=== PATIENT | female | born 1970 | race Caucasian/White ===

== ENCOUNTER 2020-03-04 17:02 | Outpatient (CLI) | payer OTHER, SELFPAY ==
[2020-03-05 14:58] LABS: SARS-CoV-2 RNA PCR Negative
== END 2020-03-04 17:03 | disposition home or self-care (01) ==
PROVIDERS: PCP Family Medicine; Visit Provider Family Medicine
DX: Z20.828 Contact with and (suspected) exposure to other viral communicable diseases (principal)
CPT/HCPCS: 87635; C9803; U0003

== ENCOUNTER 2020-11-30 19:05 | Emergency (ER) | payer OTHER, SELFPAY ==
[2020-11-30 19:13] VITALS: BP 147/98; PULSE 122; RESP 18; TEMP 37.7; O2SAT 99
--- NOTE | 2020-11-30 19:15 | ED.SKABFB ---
HPI - Skin/Abscess/Foreign Bdy General Chief complaint: Skin/Abscess/Foreign Body Stated complaint: cellulitis Time Seen by Provider: 11/30/20 19:15 Source: patient and RN notes reviewed History of Present Illness HPI narrative: Patient is a 50-year-old female who presents the urgent care with complaints of possible left breast cellulitis. Patient does have a history of breast cancer and a total mastectomy with bilateral implants. Patient states that she has never had any issues with the implants before however she has noticed some swelling of the left breast as well as a lot of redness and sharp shooting pains. Patient states that the pain started approximately 3 weeks ago and she had followed up with her breast clinic who completed a CT scan which was negative. Patient states that for the last couple days she has been having some body aches and feeling feverish. Patient had a televisit with her breast clinic today and was told to go immediately to have the breast looked at and placed on an antibiotic. Patient states that she did have a fever last night but denies of any fever since then. Patient has been taking ibuprofen which her last dose was at 115 this afternoon. Denies of any nausea or vomiting. No other acute complaints. No acute distress noted. Patient aware of the plan of care. Some parts of this dictation were generated by voice recognition software and may contain typographical and/or grammatical inaccuracies. Related Data Allergies Allergy/AdvReac Type Severity Reaction Status Date / Time No Known Allergies Allergy Unverified 08/14/12 09:02 Review of Systems Review of Systems: Narrative: CONSTITUTIONAL: Denies fever, chills, or sweats. EYES: Denies visual changes, redness, or discharge. ENT: Denies rhinorrhea, congestion, sore throat, or otalgia. CARDIOVASCULAR: Denies chest pain, palpitations, or edema. RESPIRATORY: Denies cough or dyspnea. GASTROINTESTINAL: Denies abdominal pain, nausea, vomiting, or diarrhea. GENITOURINARY: Denies dysuria or hematuria. SKIN: Reports of redness and swelling to the left breast MUSCULOSKELETAL: Denies back pain, joint pain, or myalgia. NEUROLOGIC: Denies headache, numbness, or weakness. All other systems reviewed are negative, except as documented in HPI. [facility] Family History Family History (Updated 02/10/16 @ 23:19 by DOCTOR UNKNOWN) Mother Hypertension Grandparent Malignant neoplasm of prostate Family history of malignant neoplasm of uterus Family history of atrial fibrillation Diabetes mellitus Carcinoma of colon Sibling Family history of malignant neoplasm of breast in first degree relative Other Cerebrovascular accident Family history of allergic disorder Family history of cardiovascular disease Family history of osteoporosis Social History Social History Smoking status: Never smoker Alcohol intake: current Gender identity (if verbalized by the patient): Female Comments At the time of my signature, I reviewed and agree with the nursing past medical, surgical, social, and family history. There is no relevant family history pertinent to the patient complaint. Exam Narrative: Exam Narrative: GENERAL: This is a well-nourished, well-developed patient, in no apparent distress. HEAD: normocephalic, atraumatic. EYES: PERRL. Sclera clear/white. Vision is grossly intact. EARS: External ears normal NOSE: External nose normal with no obvious nasal discharge, nares without redness, no rhinorrhea. THROAT: Mucous membranes moist NECK: Neck supple CARDIOVASCULAR: Regular rate and rhythm without murmurs, gallops, or rubs. RESPIRATORY: Clear to auscultation. Breath sounds equal bilaterally. No wheezes, rales, or rhonchi. SKIN: Mild to moderate edema/erythema surrounding the left breast with notable petechiae on both the medial and lateral aspects of the left breast. Warm to touch. Tender to touch. NEURO: awake, alert, and oriented to person, place and ti
[2020-11-30] MEDS: cefTRIAXone 250 MG VIAL 500 MG IM (19:43)
== END 2020-11-30 20:00 | disposition home or self-care (01) ==
PROVIDERS: Emergency Provider Nurse Practitioner Family
DX: N61.0 Mastitis without abscess (principal); Z85.3 Personal history of malignant neoplasm of breast; E27.0 Other adrenocortical overactivity; Z92.21 Personal history of antineoplastic chemotherapy; Z92.3 Personal history of irradiation; Z90.13 Acquired absence of bilateral breasts and nipples
CPT/HCPCS: 96372; 99213; G0463; J0696

== ENCOUNTER 2021-07-13 10:27 | Emergency (ER) | payer OTHER, SELFPAY ==
[2021-07-13 11:15] VITALS: BP 129/87; PULSE 95; RESP 16; TEMP 36.8; O2SAT 99
--- NOTE | 2021-07-13 12:35 | ED.URI ---
HPI - URI/Sore Throat General Chief Complaint: Medical Clearance Stated Complaint: swollen neck glands Time Seen by Provider: 07/13/21 12:51 Source: patient and RN notes reviewed Mode of arrival: ambulatory Limitations: no limitations History of Present Illness HPI Narrative: 50-year-old female with history of Sjogren's disease presents with concern for lymphadenopathy. She reports history of rheumatoid arthritis which was inflamed after a hike with a heavy backpack on . Reports her lymph nodes became inflamed after that. Reports she has a history of lymph node swelling to the point of causing her trouble breathing. She reports the lymph node that is swollen is in her neck. She denies any current trouble breathing or trouble swallowing. Reports she is unable to be seen by her primary care doctor. She denies fever, chills, sweats. MD elicited complaint: cough and sore throat Related Data Allergies Allergy/AdvReac Type Severity Reaction Status Date / Time No Known Allergies Allergy Unverified 08/14/12 09:02 Review of Systems Review of Systems: CONSTITUTIONAL: Denies malaise, chills, sweats, or fever. EYES: Denies visual changes, redness, or discharge. ENT: Denies rhinorrhea, congestion, sinus pain, otalgia or sore throat. Reports lymphadenopathy CARDIOVASCULAR: Denies chest pain, palpitations, or edema. RESPIRATORY: Denies cough or dyspnea. SKIN: Denies rash or itching. MUSCULOSKELETAL: Denies myalgia. NEUROLOGIC: Denies numbness, weakness, or headache. All systems reviewed & are unremarkable except as noted in HPI and below PMFSH Family History Family History (Updated 02/10/16 @ 23:19 by DOCTOR UNKNOWN) Mother Hypertension Grandparent Malignant neoplasm of prostate Family history of malignant neoplasm of uterus Family history of atrial fibrillation Diabetes mellitus Carcinoma of colon Sibling Family history of malignant neoplasm of breast in first degree relative Other Cerebrovascular accident Family history of allergic disorder Family history of cardiovascular disease Family history of osteoporosis Social History Social History Smoking status: Never smoker Alcohol intake: current Gender identity (if verbalized by the patient): Female Comments At time of signature, agree with nursing past medical, surgical, social and family history. There is no relevant family history pertinent to the presenting complaint Exam Narrative: GENERAL: Well-appearing, well-nourished, and in no acute distress. HEAD: Normocephalic EYES: PERRLA, conjunctivae clear ENT: Nares clear, turbinates edematous and erythematous, clear discharge. Mucous membranes moist. TM pearly nascimento with dull light reflex bilaterally; no tragal tenderness. Oropharynx not erythematous without lesions. Tonsils not enlarged and without exudate, no drooling, no hoarseness, no trismus, uvula midline. NECK: Supple. No lymphadenopathy CHEST: Clear to auscultation, breath sounds equal. No wheezing, rhonchi, rales, or stridor. No respiratory distress, speaks in full sentences. HEART: Regular rate and rhythm. No murmur heard. SKIN: Warm, dry, no rash. NEURO: Alert and oriented x3. PSYCH: Normal mood and affect Course Course Emergency Course: Patient is aware of diagnosis, understands and agrees to treatment plan. Anticipatory guidance given. Patient agrees to follow-up as directed and is aware of reasons to seek care at the emergency department. Portions of this record may have been created with voice recognition software Vital Signs Vital signs: Vital Signs Temperature 98.2 F 07/13/21 11:15 Pulse Rate 95 07/13/21 11:15 Respiratory Rate 16 07/13/21 11:15 Blood Pressure 129/87 07/13/21 11:15 Pulse Oximetry 99 07/13/21 11:15 Temperature 98.2 F 07/13/21 11:15 Pulse Rate 95 07/13/21 11:15 Respiratory Rate 16 07/13/21 11:15 Blood Pressure 129/87 07/13/21 11:15 Pulse Oximetry 99 07/13/21 11:
== END 2021-07-13 13:02 | disposition home or self-care (01) ==
PROVIDERS: Emergency Provider Nurse Practitioner; PCP Family Medicine
DX: R59.1 Generalized enlarged lymph nodes (principal); M35.00 Sjogren syndrome, unspecified
CPT/HCPCS: 99213; G0463

== ENCOUNTER 2021-11-03 12:04 | Emergency (ER) | payer OTHER, SELFPAY ==
--- NOTE | ~2021-11-03 | XR_ITS ---
EXAMINATION: XR chest 2V DATE: 11/03/2021 12:57 INDICATION: Chest tightness and dizziness. Abnormal EKG. TECHNIQUE: PA and lateral views of the chest were obtained. COMPARISON: Chest radiograph dated 06/27/2017 FINDINGS: The lungs remain clear with no focal airspace opacities, pulmonary edema, pleural effusion or pneumot horax. The cardiomediastinal silhouette is normal. Removal of the prior bilateral breast implants. Mi ld thoracic spondylosis. IMPRESSION: 1. No acute cardiopulmonary disease. Reviewed, dictated and finalized at location A.
--- NOTE | ~2021-11-03 | CT_ITS ---
EXAMINATION: CTA chest PE protocol DATE: 11/03/2021 14:40 INDICATION: Shortness of breath, chest tightness, history of breast cancer TECHNIQUE: Computed tomography angiography (CTA) of the chest was performed with 100 mL Omnipaque-350 intravenous contrast timed to evaluate the pulmonary arteries. Coronal maximum intensity projection 3D-reconstructions were created by the technologist. The dose-length product (DLP) was 178.35 mGy-cm. Automated exposure control and iterative reconstruction technique were employed. COMPARISON: None. FINDINGS: The pulmonary arteries are well-opacified. No pulmonary embolism is identified. There is a 3 mm nodule in the left lower lobe. There is a 2 mm nodule in the right upper lobe. There is mild dep endent atelectasis. No focal airspace opacities are identified. There is no pleural effusion or pneum othorax. There are changes of bilateral mastectomy. No pathologically enlarged thoracic lymph nodes a re identified. The heart size is normal. There is moderate thoracic spondylosis. IMPRESSION: 1. No pulmonary embolism or acute cardiopulmonary abnormality. 2. Small pulmonary nodules, probably old granulomatous disease. Reviewed, dictated and finalized at location F.
[2021-11-03 12:28] VITALS: BP 147/95; PULSE 93; RESP 16; TEMP 36.6; O2SAT 98
--- NOTE | 2021-11-03 12:28 | ECG_ITS ---
Measurements Intervals [place] Rate: 88 P: 47 ID: [id number] QRS: 3 QRSD: 86 T: -3 QT: 346 QTc: 420 Interpretive Statements SINUS RHYTHM POSSIBLE RIGHT VENTRICULAR CONDUCTION DELAY [RSR (QR) IN V1/V2] NO PREVIOUS ECG AVAILABLE FOR COMPARISON Electronically Signed On 11-03-2021 15:27:45 CDT by Erwin Dye M.D.
--- NOTE | 2021-11-03 12:28 | ED.CHESTPAIN ---
HPI - Chest Pain General Chief Complaint: Chest Pain <GRACIELA Oden Last Filed: 11/03/21 20:03> Stated Complaint: chest pain <GRACIELA Oden Last Filed: 11/03/21 20:03> Time Seen by Provider: 11/03/21 12:23 <GRACIELA Oden Last Filed: 11/03/21 20:03> Source: patient <GRACIELA Oden Last Filed: 11/03/21 20:03> Mode of arrival: ambulatory <GRACIELA Oden Last Filed: 11/03/21 20:03> Limitations: no limitations <GRACIELA Oden Last Filed: 11/03/21 20:03> History of Present Illness HPI narrative: Patient is a 51 y/o F who presents to the ED with c/o palpitations. Patient reports she had an episode of pounding heart palpitations on Saturday night, that lasted from 8:30 PM to 1 AM. She has had intermittent palpitations in the past before but they have never lasted this long. She described it as though her heart was pounding. She denied have any chest pain at that time, but did notice having increased shortness of breath and slight dizziness with exertion, for instance walking up her stairs or walking out to her garage. She had intermittent palpitations and shortness of breath with exertion over the next few days. She discussed this with someone in her support group [employer] [facility] [employer] [facility] cancer carnation today who referred her to the ED. Patient was recommended to go to [facility] but states she felt fine and decided to come home. She then talked to her about her symptoms and he recommended she come here. Patient has a history of breast cancer in 2013 with and subsequently underwent bilateral mastectomy and chemotherapy and radiation. She does see a cloth dyeing range tender oncologist due to her radiation exposure, but has never had any previous cardiac events. She also reported having a pain in her L upper back over the last week, which is worse with exertion. Denies any abdominal pain, nausea, vomiting, urinary symptoms, fever, chills, sweats, BLE pain or edema, Hx of DVT/PE. <GRACIELA Oden Last Filed: 11/03/21 20:03> Related Data Allergies/Adverse Reactions: Allergies Allergy/AdvReac Type Severity Reaction Status Date / Time No Known Allergies Allergy Verified 11/03/21 12:31 <Lauren Rodriguez PA-C - Last Filed: 11/03/21 20:03> Review of Systems Review of Systems: CONSTITUTIONAL: Denies fever, chills. CARDIOVASCULAR: Reports palpitations. Denies chest pain or edema. RESPIRATORY: Reports JAFFE. Denies cough. GASTROINTESTINAL: Denies abdominal pain, nausea, vomiting, or diarrhea. GENITOURINARY: Denies dysuria, hematuria. MUSCULOSKELETAL: Reports L upper back pain. Denies joint pain, BLE edema, or myalgia. NEUROLOGIC: Reports dizziness. Denies headache, numbness, or weakness. <Lauren Rodriguez PA-C - Last Filed: 11/03/21 20:03> All systems reviewed & are unremarkable except as noted in HPI and below <Lauren Rodriguez PA-C - Last Filed: 11/03/21 20:03> [facility] Past Medical History Medical History: Medical History (Updated 11/04/21 @ 00:00 by Thad Aleman) History of breast cancer <Lauren Rodriguez PA-C - Last Filed: 11/03/21 20:03> Surgical History Surgical History: Surgical History (Updated 11/03/21 @ 14:18 by Lauren Rodriguez PA-C) Hx of breast implants, bilateral S/P mastectomy, bilateral <Lauren Rodriguez PA-C - Last Filed: 11/03/21 20:03> Family History Family History: Family History (System 08/31/21 @ 15:39 by Kelsey Perez) Mother Hypertension Grandparent Malignant neoplasm of prostate Family history of malignant neoplasm of uterus Family history of atrial fibrillation Diabetes mellitus Carcinoma of colon Sibling Family history of malignant neoplasm of breast in first degree relative Other Cerebrovascular accident Family history of allergic disorder Family history of cardiovascular disease Family history of osteoporosis <Lauren Rodriguez PA-C - Last Filed: 11/03/21 20:03> Social History Soci
[2021-11-03] MEDS: ASPIRIN 81 MG CHEWABLE TABLET 324 MG PO (12:32)
[2021-11-03 12:33] VITALS: PULSE 92
[2021-11-03 12:54] LABS: Alanine Aminotransferase 29 U/L (4-35); Albumin Level 4.5 g/dL (3.5-5.1); Alkaline Phosphatase 66 U/L (38-126); Anion Gap 8 mmol/L (8-16); Aspartate Amino Transferase 35 U/L (14-36); Bilirubin,Total 0.4 mg/dL (0.2-1.3); Blood Urea Nitrogen 15 mg/dL (7-17); Carbon Dioxide 23 mmol/L (22-30); Chloride 107 mmol/L (98-107); Estimated Glomerular Filt Rate > 60; Glucose 91 mg/dL (65-110); Lipase 105 U/L (23-300); Potassium 4.3 mmol/L (3.4-5.0); Sodium 138 mmol/L (137-145)
[2021-11-03 12:55] LABS: INR 0.9; Prothrombin Time 11.9 Seconds (11.1-14.7)
[2021-11-03 12:56] LABS: Partial Thromboplastin Time 27.8 SECONDS (22.3-36.8)
[2021-11-03 13:00] LABS: Basophils Percent Auto 0.3 % (0.2-1.2); Eosinophils Absolute Auto 0.1 K/mm3 (0-0.3); Eosinophils Percent Auto 1.6 % (0-4.4); Hematocrit 42.9 % (37.0-47.0); Hemoglobin 14.2 g/dL (12.0-15.0); Immature Granulocyte Absolute 0.02 K/mm3 (0.00-0.031); Immature Granulocyte Percent A 0.3 % (0-0.5); Lymphocytes Absolute Auto 1.63 K/mm3 (0.9-3.2); Lymphocytes Percent Auto 28.1 % (18.3-44.2); Mean Corpuscular HGB Conc 33.1 g/dl (32-36); Mean Corpuscular Hemoglobin 28.7 pg (26-34); Mean Corpuscular Volume 86.7 fl (80-100); Mean Platelet Volume 9.4 fl (7.4-10.4); Monocytes Absolute Auto 0.5 K/mm3 (0.1-0.6); Monocytes Percent Auto 9.1 % (2.6-8.5); Neutrophils Absolute Auto 3.5 K/mm3 (1.3-6.7); Neutrophils Percent Auto 60.6 % (45.5-73.1); Platelet Count Result 254 k/mm3 (150-375); Red Blood Count 4.95 M/mm3 (4.2-5.4); Red Cell Distribution Width 12.5 % (11.5-14.5); White Blood Count 5.8 K/mm3 (4.5-10.0)
[2021-11-03 13:04] LABS: Troponin I < 0.012 ng/mL (0.000-0.034)
[2021-11-03 14:13] LABS: D Dimer 0.58 ug/mL (<0.48)
[2021-11-03 15:05] VITALS: BP 118/85; PULSE 88; RESP 12; O2SAT 100
[2021-11-03 16:17] LABS: Troponin I < 0.012 ng/mL (0.000-0.034)
[2021-11-03 16:42] VITALS: BP 131/99; PULSE 88; RESP 16; O2SAT 100
== END 2021-11-03 16:44 | disposition home or self-care (01) ==
PROVIDERS: Physician Assistant; Emergency Provider Emergency Medicine; PCP Family Medicine
DX: R00.2 Palpitations (principal); Z85.3 Personal history of malignant neoplasm of breast; Z90.13 Acquired absence of bilateral breasts and nipples; Z92.3 Personal history of irradiation; Z92.21 Personal history of antineoplastic chemotherapy; R94.31 Abnormal electrocardiogram [ECG] [EKG]
CPT/HCPCS: 36415; 71046; 71275; 80053; 83690; 84484; 85025; 85380; 85610; 85730; 93005; 99284; A9270; Q9967

== ENCOUNTER 2021-11-15 01:47 | Day surgery (SDC) | payer OTHER, SELFPAY ==
[2021-10-31 12:41] VITALS: BMI 22.1
--- NOTE | 2021-11-14 13:23 | P.PNAN_ITS ---
Anes - Initial Pre Proc Eval Procedure: Operation Date: 11/15/21 07:30 Proposed Procedures p Screening Colonoscopy - Yusef Chang MD Date/Time: 11/14/21 13:23 Surgeon: Yusef Chang MD Pre Op Diagnosis: neoplasm screening Patient Data Age: 51 Gender: F Height: 1.65 m Weight: 60.5 kg Allergies Allergy/AdvReac Type Severity Reaction Status Date / Time No Known Allergies Allergy Verified 11/15/21 06:27 Home Medications Medication Instructions Recorded Confirmed Type doxycycline monohydrate 100 mg PO BID 7 Days #14 tablet 07/13/21 11/15/21 Rx methylprednisolone [Medrol (Froy)] See Rx Instructions .ROUTE 07/13/21 11/15/21 Rx .COMPLEX #21 each Patient hx anesthesia problems: none Family hx anesthesia problems: none Results Review: All pre-operative results and documents have been reviewed as part of the pre-operative evaluation. [facility] Past Medical History Medical History (Updated 11/14/21 @ 13:23 by Oziel Yo DO) History of breast cancer Rheumatoid arthritis Surgical History Surgical History (Updated 11/03/21 @ 14:18 by Lauren Rodriguez PA-C) Hx of breast implants, bilateral S/P mastectomy, bilateral Family History Family History (System 08/31/21 @ 15:39 by Kelsey Perez) Mother Hypertension Grandparent Malignant neoplasm of prostate Family history of malignant neoplasm of uterus Family history of atrial fibrillation Diabetes mellitus Carcinoma of colon Sibling Family history of malignant neoplasm of breast in first degree relative Other Cerebrovascular accident Family history of allergic disorder Family history of cardiovascular disease Family history of osteoporosis Social History Social History Smoking status: Never smoker Alcohol intake: current Drinks per week: 4 Alcohol use details: 4 glasses of wine per week Substance use: never Substance use type: does not use Living arrangements: with family Gender identity (if verbalized by the patient): Female Spiritual care concerns: No Anes - Eval Final PreProcedure Day of Procedure 11/14/21 13:23 Patient weight: normal Heart: regular rate and rhythm Lungs: clear to auscultation and normal air movement Airway: Mallampati scale class II Neurological: alert and oriented Last oral intake: >/= 8 hours ASA classification: II Emergent: no Anesthetic plan: proceed Anesthesia type and monitoring: general GIVS and standard monitoring Results Review: All pre-operative results and documents have been reviewed as part of the pre-operative evaluation. Informed Consent: The patient's anesthetic plan and its attendant risks and benefits were discussed with the patient/family/POA. Questions were solicited and answers provided to the satisfaction of the patient/family/POA.
[2021-11-15 06:28] VITALS: BP 112/80; PULSE 109; RESP 16; TEMP 36.7; O2SAT 99
[2021-11-15] MEDS: LACTATED RINGERS 1,000 ML 150 ML IV CONT (06:41)
--- NOTE | 2021-11-15 07:27 | PM.HPGS ---
History of Present Illness History of Present Illness Consent: Risks, benefits, and alternatives have been discussed and questions answered. Patient agrees to proceed with procedure. Chief complaint: neoplasm screening Narrative: Mila Ma is a 51 year old female here for first screening colonoscopy Review of Systems Constitutional: Constitutional: Denies headache(s) and Denies weakness Eyes: Eyes: Denies blurry vision ENT: Reports Normal hearing present, Denies headache(s) and Denies neck pain Cardiovascular: Cardiovascular: Denies chest pain and Denies dyspnea Respiratory: Respiratory: Denies dyspnea Gastrointestinal: Gastrointestinal: Reports no additional gastrointestinal complaints Genitourinary: Genitourinary: Denies dysuria Musculoskeletal: Musculoskeletal: Denies neck pain Integumentary/Breasts: Skin/Breast: Denies dry skin Neurologic: Reports Normal hearing present, Denies headache(s) and Denies weakness Psychiatric: Psychiatric: Denies anxiety Endocrine: Endocrine: Denies change in body appearance Hematologic/Lymphatic: Hematologic/Lymphatic: Denies easy bleeding Allergic/Immunologic: Allergic/Immunologic: Denies urticaria PMFSH Past Medical History Medical History (Updated 11/15/21 @ 07:27 by Yusef Chang MD) Colon cancer screening History of breast cancer Rheumatoid arthritis Surgical History Surgical History (Updated 11/03/21 @ 14:18 by Lauren Rodriguez PA-C) Hx of breast implants, bilateral S/P mastectomy, bilateral Family History Family History (System 08/31/21 @ 15:39 by Kelsey Perez) Mother Hypertension Grandparent Malignant neoplasm of prostate Family history of malignant neoplasm of uterus Family history of atrial fibrillation Diabetes mellitus Carcinoma of colon Sibling Family history of malignant neoplasm of breast in first degree relative Other Cerebrovascular accident Family history of allergic disorder Family history of cardiovascular disease Family history of osteoporosis Social History Social History Smoking status: Never smoker Alcohol intake: current Drinks per week: 4 Alcohol use details: 4 glasses of wine per week Substance use: never Substance use type: does not use Living arrangements: with family Gender identity (if verbalized by the patient): Female Spiritual care concerns: No Meds Home Medications and Allergies Home Medications Medication Instructions Recorded Confirmed Type doxycycline monohydrate 100 mg PO BID 7 Days #14 tablet 07/13/21 11/15/21 Rx methylprednisolone [Medrol (Froy)] See Rx Instructions .ROUTE 07/13/21 11/15/21 Rx .COMPLEX #21 each Allergies Allergy/AdvReac Type Severity Reaction Status Date / Time No Known Allergies Allergy Verified 11/15/21 06:27 Vital Signs Vital Signs - 24 hr 11/15/21 06:28 Temperature 98.1 F Pulse Rate 109 H Respiratory Rate 16 Blood Pressure 112/80 Pulse Oximetry 99 Exam Const: General: comfortable and no acute distress HENMT: General nose exam: Normal nares present Eyes: General: appearance normal, both eyes and all related structures Neck: Neck: no JVD Resp: Auscultation: clear to auscultation bilaterally Cardio: Rate: regular rate Rhythm: regular rhythm GI: Inspection: non-distended GI Palp: Yes Soft to palpation Skin: General skin exam: normal color Neuro: General: gait normal Speech: normal speech Extrem: General: normal to inspection Psych: Mental Status: mental status grossly normal Assessment and Plan Assessment and plan (1) Colon cancer screening: Code(s): Z12.11 - Encounter for screening for malignant neoplasm of colon Status: Acute Assessment and Plan: colonoscopy
[2021-11-15 07:45] VITALS: BP 83/44; PULSE 87; RESP 24; O2SAT 99
[2021-11-15 07:55] VITALS: BP 103/73; PULSE 95; RESP 22; O2SAT 100
[2021-11-15 08:05] VITALS: BP 103/71; PULSE 91; RESP 21; O2SAT 100
== END 2021-11-15 08:12 | disposition home or self-care (01) ==
PROVIDERS: PCP Family Medicine; Visit Provider Internal Medicine Gastroenterology
PROC: 0DJD8ZZ Inspection of Lower Intestinal Tract, Via Natural or Artificial Opening Endoscopic (ICD-10-PCS; CPT 45378; principal; 2021-11-15 07:30)
DX: Z12.11 Encounter for screening for malignant neoplasm of colon (principal); K64.8 Other hemorrhoids; M06.9 Rheumatoid arthritis, unspecified; Z85.3 Personal history of malignant neoplasm of breast; Z80.0 Family history of malignant neoplasm of digestive organs
CPT/HCPCS: 45378; J2704; J7120

== ENCOUNTER 2022-07-30 08:00 | Outpatient (CLI) | payer OTHER, SELFPAY ==
[2022-07-30 08:13] LABS: Basophils Absolute Auto 0.02 K/mm3 (0.00-0.10); Basophils Percent Auto 0.4 % (0.0-1.0); Eosinophils Absolute Auto 0.18 K/mm3 (0.02-0.50); Eosinophils Percent Auto 3.9 % (1.0-6.0); Hematocrit 37.3 % (35.0-49.0); Immature Granulocyte Absolute 0.04 K/mm3 (0.00-0.00); Immature Granulocyte Percent A 0.9 % (0.0-0.0); Lymphocytes Absolute Auto 1.86 K/mm3 (1.10-4.50); Lymphocytes Percent Auto 40.3 % (18.0-42.0); Mean Corpuscular HGB Conc 32.2 g/dL (32.0-36.0); Mean Corpuscular Hemoglobin 28.6 pg (27.0-31.0); Mean Platelet Volume 8.8 fl (9.2-11.8); Monocytes Absolute Auto 0.59 K/mm3 (0.10-0.90); Monocytes Percent Auto 12.8 % (2.0-11.0); Neutrophils Absolute Auto 1.9 K/mm3 (1.7-7.2); Neutrophils Percent Auto 41.7 % (50.0-70.0); Platelet Count Result 268 K/mm3 (150-420); Red Blood Count 4.19 M/mm3 (4.20-5.40); Red Cell Distribution Width 12.4 % (11.6-14.4); White Blood Count 4.6 K/mm3 (4.8-10.8)
[2022-07-30 09:02] LABS: Alanine Aminotransferase 33 U/L (14-59); Albumin Level 3.6 g/dL (3.4-5.0); Alkaline Phosphatase 68 U/L (46-116); Anion Gap 10 mmol/L (8-16); Aspartate Amino Transferase 16 U/L (15-37); Bilirubin,Total 0.3 mg/dL (0.00-1.00); Blood Urea Nitrogen 13 mg/dL (7-18); Calcium 8.5 mg/dL (8.5-10.1); Carbon Dioxide 27 mmol/L (21-32); Chloride 106 mmol/L (98-108); Cholesterol 182 mg/dL (0-200); Estimated Glomerular Filt Rate > 60; Glucose 88 mg/dL (70-99); HDL Direct 86 mg/dL (40-60); LDL Cholesterol Calculated 87 mg/dL (<130); Osmolality Calculated 295 mOsm/kg (285-295); Potassium 4.1 mmol/L (3.5-5.1); Sodium 143 mmol/L (136-145); Total Protein 6.7 g/dL (6.4-8.2); Triglycerides 43 mg/dL (0-150)
== END 2022-07-30 08:01 | disposition home or self-care (01) ==
LOC: CHSLAB 08:03
PROVIDERS: PCP Family Medicine; Visit Provider Family Medicine
DX: Z13.220 Encounter for screening for lipoid disorders (principal); Z85.3 Personal history of malignant neoplasm of breast
CPT/HCPCS: 36415; 80053; 80061; 85025

== ENCOUNTER 2023-01-22 10:27 | Outpatient (RCR) | payer OTHER, SELFPAY ==
--- NOTE | 2023-01-22 12:05 | PTOPEVAL1 ---
Assessment and note entered by Janey Calles, PT Evaluation Information Assessment Status Evaluation Diagnosis L MCL sprain Onset 12/24/22 Subjective Information Mila Ma reports she slipped and fell into a ravine while hiking in [place] on 12/24/22. She states her left foot got caught on a rock as she slid down the ravine and she twisted her left knee . She was able to hike the last mile of that leg and then iced her knee in a nearby waterfall. She states she had quite a bit of pain in the left that night and the next day however, she was able to hike back out the next day. She continued to have pain but it was not excruciating so she and her continued their trip for 2 more weeks. She had pain with descending on hikes but not very much with ascending. She went to a sports medicine doctor when she returned home and a x-ray showed no fractures. She was diagnosed with a grade 1 sprain of the left MCL. She was referred to PT and if symptoms do not improve, she will be referred for a MRI. She notes limitations in her ability to work out, extend the left knee, and walk longer distances. She has 4 flights of stairs in her home and she is able to navigate them reciprocally but she has to take them one at a time in the morning when her pain is the worst. She also notes increased pain with moving from sitting to standing. Reported Pain Level Pain Score 1: Self Report Assessment PT Clinical Summary Mila Ma presents with left knee pain after a fall sustained while hiking on 12/31/22. She has been diagnosed with a MCL sprain. She reports difficulty and pain extending her left knee, with sit to stand transfers, stair negotiation, and she is unable to work out. She demonstrates tenderness at the femoral attachment of the left MCL, mild gapping with the valgus stress test at 30 degrees, decreased and painful left knee extension AROM, decreased left knee and hip strength, impaired gait, and decreased functional abilities. She will benefit from skilled PT to address these limitations and return her to her PLOF. Plan of Care Interventions Electrical Stimulation,Hot Pack/Cold Pack,Manual Therapy,Neuro Re-education,Patient/Caregiver Ed
--- NOTE | 2023-01-22 12:05 | OPREHPOC ---
Outpatient Therapy Plan of Care This is a Multidisciplinary Plan of Care that may contain components documented by all disciplines (PT, OT, and ST.) PT Problem 1 PT Problem #1 Knowledge Deficit PT Goal 1 Goal The patient will be independent in a home program for LE strength and stability. Target Visit 8 PT Problem 2 PT Problem #2 Pain PT Goal 1 Goal The patient will report no greater than 2/10 left knee pain when ascending and descending stairs. Target Visit 4 PT Goal 2 Goal The patient will report no left knee pain with return to recreational activities like working out at the gym and hiking. Target Visit 8 PT Problem 3 PT Problem #3 Impaired Gait PT Goal 1 Goal The patient will demonstrate pain free gait with no circumduction noted and full left knee ROM. Target Visit 4 PT Goal 2 Goal The patient will ambulate 1,200 steps during the 6 minute walk test with no left knee pain. Target Visit 8 PT Problem 4 PT Problem #4 Impaired Strength PT Goal 1 Goal The patient will demonstrate 5/5 strength in all knee and hip muscles to provide support to the LE for hiking. Target Visit 8 PT Problem 5 PT Problem #5 Impaired Functional Mobil PT Goal 1 Goal The patient will demonstrate the ability to navigate a full flight of stairs reciprocally without left knee pain. Target Visit 8
--- NOTE | 2023-03-19 13:31 | PTOPDC ---
Assessment and note entered by Janey Calles, PT Evaluation Information Assessment Status Discharge - Pt Not Presen Diagnosis L MCL sprain Onset 12/24/22 Subjective Information Mila called after her second visit and cancelled remaining appointments due to feeling better and working out on her own at the gym. PT followed up with her via phone call today and she continues to have no pain and no limitations in regards to her left knee. Reported Pain Level Pain Score 0: Self Report Assessment PT Clinical Summary Mila Ma attended 2 skilled PT sessions for left MCL sprain. She had no pain and was performing exercises independently so she cancelled remaining appointments. PT followed up with her via phone today and she remains pain free and has no limitations so she will be discharged. Plan of Care PT Services Indicated Yes
== END 2023-01-29 15:57 | disposition home or self-care (01) ==
LOC: CHSPT 10:27
PROVIDERS: Visit Provider Family Medicine Sports Medicine
DX: M25.562 Pain in left knee (principal); S83.412D Sprain of medial collateral ligament of left knee, subsequent encounter
CPT/HCPCS: 97110; 97161; 97530

== ENCOUNTER 2023-07-22 17:15 | Outpatient (CLI) | payer OTHER, SELFPAY ==
[2023-07-22 17:28] LABS: Basophils Absolute Auto 0.02 K/mm3 (0.00-0.10); Basophils Percent Auto 0.4 % (0.0-1.0); Eosinophils Absolute Auto 0.08 K/mm3 (0.02-0.50); Eosinophils Percent Auto 1.7 % (1.0-6.0); Hematocrit 41.4 % (35.0-49.0); Hemoglobin 13.4 g/dL (12.0-15.0); Immature Granulocyte Absolute 0.01 K/mm3 (0.00-0.00); Immature Granulocyte Percent A 0.2 % (0.0-0.0); Lymphocytes Absolute Auto 1.14 K/mm3 (1.10-4.50); Lymphocytes Percent Auto 24.5 % (18.0-42.0); Mean Corpuscular HGB Conc 32.4 g/dL (32.0-36.0); Mean Corpuscular Hemoglobin 28.9 pg (27.0-31.0); Mean Corpuscular Volume 89.2 fL (78.0-102.0); Mean Platelet Volume 9.5 fl (9.2-11.8); Monocytes Absolute Auto 0.36 K/mm3 (0.10-0.90); Monocytes Percent Auto 7.7 % (2.0-11.0); Neutrophils Absolute Auto 3.1 K/mm3 (1.7-7.2); Neutrophils Percent Auto 65.5 % (50.0-70.0); Platelet Count Result 216 K/mm3 (150-420); Red Blood Count 4.64 M/mm3 (4.20-5.40); Red Cell Distribution Width 11.9 % (11.6-14.4); White Blood Count 4.7 K/mm3 (4.8-10.8)
[2023-07-22 18:06] LABS: Anion Gap 11 mmol/L (8-16); Blood Urea Nitrogen 10 mg/dL (7-18); Calcium 9.6 mg/dL (8.5-10.1); Carbon Dioxide 29 mmol/L (21-32); Chloride 101 mmol/L (98-108); Estimated Glomerular Filt Rate > 60; Glucose 81 mg/dL (70-99); Osmolality Calculated 290 mOsm/kg (285-295); Potassium 3.3 mmol/L (3.5-5.1); Sodium 141 mmol/L (136-145); Thyroid Stimulating Hormone 3.25 uIU/mL (0.36-3.74)
[2023-07-23 09:01] LABS: Magnesium 2.2 mg/dL (1.8-2.4)
== END 2023-07-22 17:16 | disposition home or self-care (01) ==
LOC: CHSLAB 17:17
PROVIDERS: PCP Family Medicine; Visit Provider Family Medicine
DX: R00.2 Palpitations (principal)
CPT/HCPCS: 36415; 80048; 83735; 84443; 85025

== ENCOUNTER 2023-07-29 08:27 | Outpatient (CLI) | payer OTHER, SELFPAY ==
--- NOTE | 2023-07-29 08:35 | EST_ITS ---
Patient Info Name: Mila Ma Age: 52 years : 1970 Gender: Female Ht: 65 in Wt: 137 lbs BSA: 1.69 m2 HR: 87 bpm BP: 121 / 79 mmHg Heart Rhythm: Sinus Rhythm Technical Quality: Excellent Exam Date: 07/29/2023 8:51 AM Exam Location: [facility] Patient Status: Outpatient Admit Date: 07/29/2023 Staff Ordering Physician: Joseph Garcia MD Attending Provider: Joseph Garcia MD Exercise Technologist: Riddhi Monte CRT Exercise Physician: Cecilia Medina CEP Exam Type: CA stress test treadmill Study Info Indications Palpitations - An exercise stress test was performed. History/Risk Factors NA. Summary 1. 1. Negative Kevyn exercise stress test for ischemic ST changes by ECG criteria. 2. 2. Good functional capacity, achieving 10 METs of workload. 3. 3. Appropriate HR response to exercise. 4. 4. Appropriate HR recovery at 1 minute post exercise. 5. 5. No imaging with stress testing. Protocol: Kevyn Stress ECG Details Stage: REST Duration (min): 4 min : 20 sec Speed (mph): 0.0 Grade (%): 0 HR (bpm): 86 SBP (mmHg): 121 DBP (mmHg): 79 METS: --- Stage: REST Duration (min): 6 min : 11 sec Speed (mph): 0.0 Grade (%): 0 HR (bpm): 95 SBP (mmHg): 121 DBP (mmHg): 79 METS: --- Stage: STAGE 1 Duration (min): 1 min : 0 sec Speed (mph): 1.7 Grade (%): 10 HR (bpm): 108 SBP (mmHg): 121 DBP (mmHg): 79 METS: --- Stage: STAGE 1 Duration (min): 2 min : 0 sec Speed (mph): 1.7 Grade (%): 10 HR (bpm): 131 SBP (mmHg): 121 DBP (mmHg): 79 METS: --- Stage: STAGE 1 Duration (min): 3 min : 0 sec Speed (mph): 1.7 Grade (%): 10 HR (bpm): 121 SBP (mmHg): 127 DBP (mmHg): 85 METS: --- Stage: STAGE 2 Duration (min): 1 min : 0 sec Speed (mph): 2.5 Grade (%): 12 HR (bpm): 135 SBP (mmHg): 127 DBP (mmHg): 85 METS: --- Stage: STAGE 2 Duration (min): 2 min : 0 sec Speed (mph): 2.5 Grade (%): 12 HR (bpm): 141 SBP (mmHg): 127 DBP (mmHg): 85 METS: --- Stage: STAGE 2 Duration (min): 3 min : 0 sec Speed (mph): 2.5 Grade (%): 12 HR (bpm): 149 SBP (mmHg): 157 DBP (mmHg): 87 METS: --- Stage: STAGE 3 Duration (min): 1 min : 0 sec Speed (mph): 3.4 Grade (%): 14 HR (bpm): 161 SBP (mmHg): 157 DBP (mmHg): 87 METS: --- Stage: STAGE 3 Duration (min): 1 min : 43 sec Speed (mph): 3.4 Grade (%): 14 HR (bpm): 166 SBP (mmHg): 157 DBP (mmHg): 87 METS: --- Stage: RECOVERY Duration (min): 0 min : 16 sec Speed (mph): 1.5 Grade (%): 0 HR (bpm): 164 SBP (mmHg): 157 DBP (mmHg): 87 METS: --- Stage: RECOVERY Duration (min): 1 min : 16 sec Speed (mph): 0.0 Grade (%): 0 HR (bpm): 132 SBP (mmHg): 157 DBP (mmHg): 87 METS: --- Stage: RECOVERY Duration (min): 2 min : 16 sec Speed (mph): 0.0 Grade (%): 0 HR (bpm): 114 SBP (mmHg): 173 DB
--- NOTE | 2023-08-28 08:39 | WPDHOLTEREM ---
Holter/Event Monitor Holter/Event Monitor Date of procedure: 07/29/23 Holter/Event Procedure: Event Monitor Indications: Palpitations Conclusion: 1. 30 day event monitor between 07/29/23-08/27/23. This is an event-triggered monitor only. There are 2 available transmissions for analysis. 2. Both strips show sinus rhythm, HR range 73-106 bpm. 3. No arrhythmias. 4. No significant pauses. 5. No symptoms available for correlation.
== END 2023-07-29 08:28 | disposition home or self-care (01) ==
LOC: CHSCARD 08:30
PROVIDERS: PCP Family Medicine; Visit Provider Family Medicine
DX: R00.2 Palpitations (principal)
CPT/HCPCS: 93017; 93270

== ENCOUNTER 2023-08-06 16:32 | Outpatient (CLI) | payer OTHER, SELFPAY ==
[2023-08-06 16:47] LABS: Basophils Absolute Auto 0.01 K/mm3 (0.00-0.10); Basophils Percent Auto 0.2 % (0.0-1.0); Eosinophils Absolute Auto 0.08 K/mm3 (0.02-0.50); Eosinophils Percent Auto 1.2 % (1.0-6.0); Hematocrit 37.6 % (35.0-49.0); Hemoglobin 12.1 g/dL (12.0-15.0); Immature Granulocyte Absolute 0.02 K/mm3 (0.00-0.00); Immature Granulocyte Percent A 0.3 % (0.0-0.0); Lymphocytes Absolute Auto 0.99 K/mm3 (1.10-4.50); Lymphocytes Percent Auto 15.3 % (18.0-42.0); Mean Corpuscular HGB Conc 32.2 g/dL (32.0-36.0); Mean Corpuscular Hemoglobin 28.3 pg (27.0-31.0); Mean Corpuscular Volume 88.1 fL (78.0-102.0); Mean Platelet Volume 9.2 fl (9.2-11.8); Monocytes Absolute Auto 0.39 K/mm3 (0.10-0.90); Platelet Count Result 205 K/mm3 (150-420); Red Blood Count 4.27 M/mm3 (4.20-5.40); White Blood Count 6.5 K/mm3 (4.8-10.8)
[2023-08-06 18:13] LABS: Anion Gap 11 mmol/L (8-16); Blood Urea Nitrogen 10 mg/dL (7-18); Calcium 8.6 mg/dL (8.5-10.1); Carbon Dioxide 29 mmol/L (21-32); Chloride 102 mmol/L (98-108); Estimated Glomerular Filt Rate > 60; Glucose 89 mg/dL (70-99); Osmolality Calculated 292 mOsm/kg (285-295); Potassium 3.8 mmol/L (3.5-5.1); Sodium 142 mmol/L (136-145)
== END 2023-08-06 16:33 | disposition home or self-care (01) ==
LOC: CHSLAB 16:35
PROVIDERS: PCP Family Medicine; Visit Provider Family Medicine
DX: E87.6 Hypokalemia (principal)
CPT/HCPCS: 36415; 80048; 85025

== ENCOUNTER 2023-10-03 16:58 | Outpatient (CLI) | payer OTHER, SELFPAY ==
[2023-10-03 18:20] LABS: Folic Acid 18.3 ng/mL (8.6->20); Thyroid Stimulating Hormone 2.69 uIU/mL (0.36-3.74); Uric Acid 3.2 mg/dL (2.6-6.0); Vitamin B12 740 pg/mL (193-986)
[2023-10-05 16:13] LABS: RPR Screen Non-Reactive (Non-Reactive)
[2023-10-06 03:46] LABS: Methylmalonic Acid 102 nmol/L (87-318)
== END 2023-10-03 16:59 | disposition home or self-care (01) ==
LOC: CHSLAB 17:00
PROVIDERS: PCP Family Medicine; Visit Provider Family Medicine
DX: G62.9 Polyneuropathy, unspecified (principal); M79.673 Pain in unspecified foot
CPT/HCPCS: 36415; 82607; 82746; 83921; 84443; 84550; 86592

== ENCOUNTER 2023-10-10 07:12 | Outpatient (CLI) | payer OTHER, SELFPAY ==
--- NOTE | ~2023-10-10 | MR_ITS ---
EXAMINATION: MR brain/brain stem wo con DATE: 10/10/2023 08:08 INDICATION: Polyneuropathy. TECHNIQUE: Magnetic resonance imaging (MRI) of the brain and brainstem was performed without intraven ous contrast. COMPARISON: None. FINDINGS: There is no intracranial hemorrhage, acute infarction, or abnormal intracranial mass lesion . The ventricles are normal in size. There is mucosal thickening in the paranasal sinuses including c omplete opacification of left maxillary sinus. Partially visualized is a 14 mm cystic mass with septa tions in right parotid gland. The orbits are normal. The mastoid air cells are normal. IMPRESSION: 1. Normal brain. 2. 14 mm cystic mass with septations in right parotid gland. The differential diagnosis includes Wart hin tumor, benign mixed tumor, and less likely primary malignancy or christiano metastatic disease. Ultras ound-guided fine-needle aspiration is recommended. Reviewed, dictated and finalized at location A. IMPRESSION: 1. Normal brain. 2. 14 mm cystic mass with septations in right parotid gland. The differential d iagnosis includes Warthin tumor, benign mixed tumor, and less likely primary ma lignancy or christiano metastatic disease. Ultrasound-guided fine-needle aspiration is recommended.
[2023-10-13 14:56] LABS: Lyme Disease Ab (IgM), Blot Negative (Negative); Lyme Disease Ab(IgG), Blot Negative (Negative)
== END 2023-10-10 07:13 | disposition home or self-care (01) ==
PROVIDERS: PCP Family Medicine; Visit Provider Family Medicine
DX: G62.9 Polyneuropathy, unspecified (principal); K11.6 Mucocele of salivary gland
CPT/HCPCS: 36415; 70551; 86617

== ENCOUNTER 2023-10-23 16:19 | Outpatient (CLI) | payer OTHER, SELFPAY ==
[2023-10-23 17:23] LABS: CRP 1.2 mg/dL (0.0-0.9)
[2023-10-23 18:02] LABS: Erythrocyte Sedimentation Rate 29 mm/hr (0-20)
[2023-10-25 02:00] LABS: Protein, Total 6.7 g/dL (6.1-8.1)
[2023-10-25 12:56] LABS: Albumin 4.2 g/dL (3.8-4.8); Alpha 1 Globulin 0.3 g/dL (0.2-0.3); Alpha 2 Globulin 0.7 g/dL (0.5-0.9); Beta 1 Globulin 0.5 g/dL (0.4-0.6); Gamma Globulin 0.7 g/dL (0.8-1.7)
[2023-10-26 09:09] LABS: Vitamin B6 36.1 ng/mL (2.1-21.7)
== END 2023-10-23 16:20 | disposition home or self-care (01) ==
LOC: CHSLAB 16:21
PROVIDERS: PCP Family Medicine; Visit Provider Psychiatry & Neurology Neurology
DX: R20.2 Paresthesia of skin (principal)
CPT/HCPCS: 36415; 82175; 83655; 83825; 84155; 84165; 84207; 85652; 86140; 86334

== ENCOUNTER 2023-10-30 17:10 | Outpatient (CLI) | payer OTHER, SELFPAY ==
[2023-11-01 13:28] LABS: Arsenic, Blood <10 mcg/L (<23); Lead, Blood <1.0 mcg/dL (<3.5); Mercury, Blood <5 mcg/L (<OR=10)
[2023-11-01 15:19] LABS: Collection Sample VENOUS BLOOD
== END 2023-10-30 17:11 | disposition home or self-care (01) ==
LOC: CHSLAB 17:15
PROVIDERS: PCP Family Medicine; Visit Provider Psychiatry & Neurology Neurology
DX: R20.2 Paresthesia of skin (principal)
CPT/HCPCS: 82175; 83655; 83825

== ENCOUNTER 2023-11-23 10:30 | Outpatient (CLI) | payer OTHER, SELFPAY ==
--- NOTE | ~2023-11-23 | MR_ITS ---
EXAMINATION: MR lumbar spine wo con DATE: 11/23/2023 11:16 INDICATION: Paresthesias. Breast cancer. TECHNIQUE: Magnetic resonance imaging (MRI) of the lumbar spine was performed without intravenous con trast. Sequences included sagittal T2-weighted FSE, sagittal T2-weighted FS FSE, sagittal T1-weighted FSE, and axial T2-weighted FSE. COMPARISON: None FINDINGS: There is 8 degrees levocurvature of lumbar spine. There is 3 mm anterolisthesis of L3 on L4 . There is prominent fatty marrow at T11 and T12. There are Schmorl's nodes at multiple levels. There is mildly decreased disc height at L3-L4, severely decreased disc height at L4-L5, and mildly decrea sed disc height at L5-S1. The distal spinal cord signal intensity is normal. The conus medullaris is at L1-L2. The following disc levels are specifically discussed: L1-L2: The disc does not extend beyond the endplate margin. There is mild bilateral facet joint osteo arthritis. There is no neural foraminal stenosis. There is no central canal stenosis. L2-L3: The disc is bulging. There is mild bilateral facet joint osteoarthritis. There is mild bilater al neural foraminal stenosis. There is mild central canal stenosis. L3-L4: The disc is bulging. There is severe bilateral facet joint osteoarthritis. There is mild bilat eral neural foraminal stenosis. There is mild central canal stenosis. L4-L5: The disc is bulging. There is severe bilateral facet joint osteoarthritis. There is mild bilat eral neural foraminal stenosis. There is mild central canal stenosis. L5-S1: The disc is bulging. There is severe bilateral facet joint osteoarthritis. There is mild right and moderate left neural foraminal stenosis. There is mild central canal stenosis. IMPRESSION: 1. Severe lumbar spondylosis. Reviewed, dictated and finalized at location E.
== END 2023-11-23 10:31 | disposition home or self-care (01) ==
LOC: CHSIMG 10:32
PROVIDERS: PCP Family Medicine; Visit Provider Psychiatry & Neurology Neurology
DX: R20.2 Paresthesia of skin (principal); M43.06 Spondylolysis, lumbar region
CPT/HCPCS: 72148

== ENCOUNTER 2023-12-07 10:03 | Outpatient (CLI) | payer OTHER, SELFPAY ==
[2023-12-07 10:38] VITALS: BP 114/80; PULSE 89; RESP 18; TEMP 36.3; O2SAT 97
[2023-12-07 12:04] VITALS: BP 132/86; PULSE 86; RESP 18; TEMP 36.3; O2SAT 100
== END 2023-12-07 10:04 | disposition home or self-care (01) ==
LOC: CHSTREATRM 10:07
PROVIDERS: PCP Family Medicine; Visit Provider Psychiatry & Neurology Neurology
DX: G62.9 Polyneuropathy, unspecified (principal)
CPT/HCPCS: 96365; J2919; J7050

== ENCOUNTER 2023-12-08 10:10 | Outpatient (CLI) | payer OTHER, SELFPAY ==
[2023-12-08 10:30] VITALS: BP 118/87; PULSE 98; RESP 18; TEMP 36.1
[2023-12-08 10:51] VITALS: BMI 23.4
[2023-12-08 11:40] VITALS: BP 120/78; PULSE 87; RESP 18
--- NOTE | 2023-12-08 11:45 | PC.NURSE ---
1020 Here for OP IV infusion of solumedrol, call light given, IV started in ED before patietn arrived upstairs 1037 Solumedrol infusion started 1140 solumedrol infusion completed, tolerated well, IV dc with cathlon intact, pressure bandaid applied, tolerated well [id number]
--- NOTE | 2023-12-08 11:47 | PC.NURSE ---
1020 presents for OP infusion of solumedrol, pharmacy aware of patietn arrival 1037 IV started in ed before patient to room, solumedrol started, site clear 1140 infused, tolerated well, dc iv site cathlon intact, denies needs, 1145 discharged ambulatory to home, no compleints
== END 2023-12-08 10:11 | disposition home or self-care (01) ==
LOC: CHSTREATRM 10:12
PROVIDERS: PCP Family Medicine; Visit Provider Psychiatry & Neurology Neurology
DX: G62.9 Polyneuropathy, unspecified (principal)
CPT/HCPCS: 96365; J2919; J7050

== ENCOUNTER 2023-12-09 09:22 | Outpatient (CLI) | payer OTHER, SELFPAY ==
[2023-12-09 10:20] VITALS: BP 118/85; PULSE 84; RESP 16; TEMP 36.1; O2SAT 98
--- NOTE | 2023-12-09 10:20 | PC.NURSE ---
Patient here for infusion of Solu-medrol Tolerated IV start well. Provided with water per request. Patient resting in recliner with ble elevated. Vital signs stable. Call light and belongings at side.
[2023-12-09 10:25] VITALS: BMI 23.4
--- NOTE | 2023-12-09 11:30 | PC.NURSE ---
Infusion complete, patient tolerated well. IV site removed, tip intact. Dressing applied to site. Patient denies any questions at this time. Left floor ambulatory.
== END 2023-12-09 09:23 | disposition home or self-care (01) ==
PROVIDERS: PCP Family Medicine; Visit Provider Psychiatry & Neurology Neurology
DX: G62.9 Polyneuropathy, unspecified (principal)
CPT/HCPCS: 96365; J2919; J7050

== ENCOUNTER 2024-01-07 15:15 | Outpatient (CLI) | payer OTHER, SELFPAY | END 2024-01-07 15:16 | disposition home or self-care (01) | LOC: CHSLAB 15:18 | PROVIDERS: PCP Family Medicine; Visit Provider Psychiatry & Neurology Neurology | DX: R89.9 Unspecified abnormal finding in specimens from other organs, systems and tissues (principal) | CPT/HCPCS: 36415; 83520 ==

== ENCOUNTER 2024-01-10 10:29 | Outpatient (CLI) | payer OTHER, SELFPAY ==
[2024-01-10 10:47] LABS: Hematocrit 35.2 % (35.0-49.0); Hemoglobin 11.6 g/dL (12.0-15.0); Mean Corpuscular Hemoglobin 28.5 pg (27.0-31.0); Mean Corpuscular Volume 86.5 fL (78.0-102.0); Mean Platelet Volume 9.6 fl (9.2-11.8); Platelet Count Result 251 K/mm3 (150-420); Red Blood Count 4.07 M/mm3 (4.20-5.40); Red Cell Distribution Width 12.3 % (11.6-14.4); White Blood Count 6.2 K/mm3 (4.8-10.8)
[2024-01-10 11:29] LABS: Alanine Aminotransferase 22 U/L (14-59); Albumin Level 3.1 g/dL (3.4-5.0); Alkaline Phosphatase 49 U/L (46-116); Anion Gap 8 mmol/L (4-12); Aspartate Amino Transferase 20 U/L (15-37); Bilirubin,Total 0.3 mg/dL (0.00-1.00); Blood Urea Nitrogen 10 mg/dL (7-18); CRP 1.2 mg/dL (0.0-0.9); Calcium 8.9 mg/dL (8.5-10.1); Carbon Dioxide 28 mmol/L (21-32); Chloride 103 mmol/L (98-108); Estimated Glomerular Filt Rate > 60; Glucose 88 mg/dL (70-99); Osmolality Calculated 286 mOsm/kg (285-295); Potassium 4.3 mmol/L (3.5-5.1); Sodium 139 mmol/L (136-145)
[2024-01-10 11:48] LABS: Erythrocyte Sedimentation Rate 1 mm/hr (0-20)
== END 2024-01-10 10:30 | disposition home or self-care (01) ==
LOC: CHSLAB 10:31
PROVIDERS: PCP Family Medicine; Visit Provider Internal Medicine Rheumatology
DX: M25.50 Pain in unspecified joint (principal)
CPT/HCPCS: 36415; 80053; 85027; 85652; 86140

== ENCOUNTER 2024-01-18 16:43 | Emergency (ER) | payer OTHER, SELFPAY ==
[2024-01-18] VITALS (9 sets, daily range): BP systolic 91–120; BP diastolic 68–83; PULSE 97–115; RESP 18–22; TEMP 36.6; O2SAT 98–100
--- NOTE | 2024-01-18 16:48 | ED.ALLEREA ---
HPI - Allergic Reaction General Chief complaint: Allergic Reaction Stated complaint: allergic reaction - wasps Time Seen by Provider: 01/18/24 16:47 Source: patient and family Mode of arrival: ambulatory Limitations: no limitations History of Present Illness HPI narrative: this is a 53-year-old female with history of neuropathy recently got stung by a wasp and has severe allergic reactions and did take her epi pen does prior to arrival to the emergency department. Currently the patient is stable with no chest pain no shortness of breath no audible wheezing does have urticaria in the neck area the facial area in the neck area did show some no audible wheezing no fever chills no nausea vomiting no abdominal pain. complaint: allergic reaction, hives and facial swelling Onset (ago): hour(s) Exposure: insect bite Symptoms: rash, itching and facial swelling Severity: mild Treatment prior to arrival: epinephrine Previous Allergic Reaction History: prior ED visit(s) Related Data Home Medications Medication Instructions Recorded Confirmed pregabalin 50 mg capsule 50 mg PO USEASDIRECTD 12/08/23 12/09/23 Allergies Allergy/AdvReac Type Severity Reaction Status Date / Time No Known Allergies Allergy Verified 11/15/21 06:27 Review of Systems Review of Systems: All systems reviewed & are unremarkable except as noted in HPI and below PMFSH Past Medical History Medical History Colon cancer screening History of breast cancer Rheumatoid arthritis Surgical History Surgical History Hx of breast implants, bilateral S/P mastectomy, bilateral Family History Family History Mother Hypertension Grandparent Malignant neoplasm of prostate Family history of malignant neoplasm of uterus Family history of atrial fibrillation Diabetes mellitus Carcinoma of colon Sibling Family history of malignant neoplasm of breast in first degree relative Other Cerebrovascular accident Family history of allergic disorder Family history of cardiovascular disease Family history of osteoporosis Social History Social History Smoking status: Never smoker Alcohol intake: current Drinks per week: 4 Alcohol use details: 4 glasses of wine per week Substance use: never Substance use type: does not use Living arrangements: with family Gender identity (if verbalized by the patient): Female Spiritual care concerns: No Exam Const: General: healthy appearing, no acute distress and alert Nutritional Appearance: well nourished Orientation/consciousness: patient oriented x3 Limitations: no limitations HENMT: Head: normal to inspection Eyes: Conjunctivae: conjunctivae normal Pupils: Equal, round and reactive pupils present EOM: EOMs intact bilaterally Neck: Neck: normal visual inspection, no lymphadenopathy and no meningeal signs Chest: Chest palpation & inspection: normal inspection of the chest Resp: Effort & Inspection: normal respiratory effort Auscultation: clear to auscultation bilaterally Cardio: Rate: tachycardic Rhythm: regular rhythm GI: GI Palp: Yes Soft to palpation Auscultation: normal bowel sounds Skin: Other: Urticarial rash in the face and neck area Neuro: General: patient oriented x3 and moves all extremities Extrem: General: normal to inspection Course Course Emergency Course: patient heart rate elevated at 115 but recently took shot of her EpiPen for known allergic reactions to insect bites. Administered a dose of Benadryl IM along with a Depo-Medrol IM. Vital Signs Vital signs: Vital Signs Temperature 36.6 C 01/18/24 16:44 Pulse Rate 115 H 01/18/24 16:44 Respiratory Rate 22 H 01/18/24 16:44 Blood Pressure 119/82 01/18/24 16:44 Pulse Ox
[2024-01-18] MEDS: diphenhydrAMINE HCl INJ 50 MG/ML VIAL 25 MG IM (16:52)
[2024-01-18] MEDS: methylPREDNISolone ACETATE 40 MG/ML VIAL 80 MG IM (16:52)
[2024-01-18] MEDS: ONDANSETRON HCL ODT 4 MG TABLET PO (16:55)
== END 2024-01-18 17:48 | disposition home or self-care (01) ==
PROVIDERS: Emergency Provider Emergency Medicine; PCP Family Medicine
DX: T63.461A Toxic effect of venom of wasps, accidental (unintentional), initial encounter (principal); L50.0 Allergic urticaria; M06.9 Rheumatoid arthritis, unspecified; Z85.3 Personal history of malignant neoplasm of breast
CPT/HCPCS: 96372; 99284; A9270; J1010; J1200

== ENCOUNTER 2024-02-03 11:04 | Outpatient (CLI) | payer OTHER, SELFPAY ==
[2024-02-03 11:28] LABS: Basophils Percent Auto 0.2 % (0.2-1.2); Eosinophils Percent Auto 0.1 % (0-4.4); Hematocrit 37.9 % (37.0-47.0); Hemoglobin 11.6 g/dL (12.0-15.0); Immature Granulocyte Absolute 0.05 K/mm3 (0.00-0.031); Immature Granulocyte Percent A 0.4 % (0-0.5); Lymphocytes Absolute Auto 0.33 K/mm3 (0.9-3.2); Lymphocytes Percent Auto 2.6 % (18.3-44.2); Mean Corpuscular HGB Conc 30.6 g/dl (32-36); Mean Corpuscular Hemoglobin 27.8 pg (26-34); Mean Corpuscular Volume 90.9 fl (80-100); Mean Platelet Volume 9.6 fl (7.4-10.4); Monocytes Absolute Auto 0.2 K/mm3 (0.1-0.6); Monocytes Percent Auto 1.5 % (2.6-8.5); Neutrophils Absolute Auto 12.1 K/mm3 (1.3-6.7); Neutrophils Percent Auto 95.2 % (45.5-73.1); Platelet Count Result 243 k/mm3 (150-375); Red Blood Count 4.17 M/mm3 (4.2-5.4); Red Cell Distribution Width 13.4 % (11.5-14.5); White Blood Count 12.7 K/mm3 (4.5-10.0)
[2024-02-03 12:35] LABS: Iron 71 ug/dL (37-170)
[2024-02-03 12:47] LABS: Alanine Aminotransferase 17 U/L (6-35); Albumin Level 4.2 g/dL (3.5-5.1); Alkaline Phosphatase 48 U/L (38-126); Anion Gap 8 mmol/L (4-12); Aspartate Amino Transferase 21 U/L (14-36); Bilirubin,Total 0.5 mg/dL (0.2-1.3); Blood Urea Nitrogen 18 mg/dL (7-17); CRP 1.8 mg/dL (<1.0); Calcium 9.2 mg/dL (8.4-10.2); Carbon Dioxide 26 mmol/L (22-30); Chloride 103 mmol/L (98-107); Estimated Glomerular Filt Rate > 60; Glucose 102 mg/dL (65-110); Lactate Dehydrogenase 170 U/L (120-246); Percent Iron Saturation 30 % (20-50); Potassium 3.6 mmol/L (3.4-5.0); Sodium 137 mmol/L (137-145)
[2024-02-03 12:57] LABS: Erythrocyte Sedimentation Rate 14 mm/hr (0-20)
[2024-02-03 13:28] LABS: Immunoglobulin A 196 mg/dL (70-400); Immunoglobulin G 1385 mg/dL (700-1600); Immunoglobulin M 391 mg/dL (40-230)
[2024-02-03 13:53] LABS: Folic Acid 5.9 ng/mL (2.76->20)
[2024-02-04 09:54] LABS: Protein, Total 6.5 g/dL (6.1-8.1)
[2024-02-04 13:43] LABS: Kappa\\Lambda Light Chains 9.38 (0.26-1.65); Lambda Light Chain 11.7 mg/L (5.7-26.3)
[2024-02-04 15:14] LABS: Albumin 3.6 g/dL (3.8-4.8); Alpha 1 Globulin 0.3 g/dL (0.2-0.3); Alpha 2 Globulin 0.7 g/dL (0.5-0.9); Beta 1 Globulin 0.4 g/dL (0.4-0.6); Gamma Globulin 1.3 g/dL (0.8-1.7)
[2024-02-07 08:58] LABS: Methylmalonic Acid 142 nmol/L (55-335)
== END 2024-02-03 11:05 | disposition home or self-care (01) ==
LOC: ANHLAB 11:05
PROVIDERS: Nurse Practitioner Family; PCP Family Medicine; Visit Provider Internal Medicine Hematology & Oncology
DX: D72.9 Disorder of white blood cells, unspecified (principal); D50.9 Iron deficiency anemia, unspecified; M35.9 Systemic involvement of connective tissue, unspecified
CPT/HCPCS: 36415; 80053; 82607; 82728; 82746; 82784; 83540; 83550; 83615; 83883; 83921; 84155; 84165; 84238; 85025; 85652; 86140

== ENCOUNTER 2024-02-18 08:59 | Outpatient (CLI) | payer OTHER, SELFPAY ==
[2024-02-18 09:20] LABS: Hematocrit 35.1 % (35.0-49.0); Hemoglobin 11.1 g/dL (12.0-15.0); Mean Corpuscular HGB Conc 31.6 g/dL (32-36); Mean Corpuscular Hemoglobin 28.3 pg (27.0-31.0); Mean Corpuscular Volume 89.5 fL (78.0-102.0); Mean Platelet Volume 9.3 fl (9.2-11.8); Platelet Count Result 257 K/mm3 (150-420); Red Blood Count 3.92 M/mm3 (4.20-5.40); Red Cell Distribution Width 14.4 % (11.6-14.4); White Blood Count 6.8 K/mm3 (4.8-10.8)
[2024-02-18 10:20] LABS: Erythrocyte Sedimentation Rate 24 mm/hr (0-20)
[2024-02-18 19:09] LABS: Alanine Aminotransferase 59 U/L (14-59); Albumin Level 3.3 g/dL (3.4-5.0); Alkaline Phosphatase 50 U/L (46-116); Aspartate Amino Transferase 32 U/L (15-37); Bilirubin,Total 0.4 mg/dL (0.00-1.00); Blood Urea Nitrogen 13 mg/dL (7-18); Calcium 8.3 mg/dL (8.5-10.1); Chloride 105 mmol/L (98-108); Estimated Glomerular Filt Rate > 60; Glucose 68 mg/dL (70-99); Osmolality Calculated 290 mOsm/kg (285-295); Potassium 3.3 mmol/L (3.5-5.1); Sodium 141 mmol/L (136-145); Total Protein 6.5 g/dL (6.4-8.2)
[2024-02-18 19:26] LABS: Anion Gap 14 mmol/L (4-12); Carbon Dioxide 22 mmol/L (21-32)
[2024-02-18 19:28] LABS: CRP < 0.5 mg/dL (0.0-0.9)
== END 2024-02-18 09:00 | disposition home or self-care (01) ==
LOC: CHSLAB 09:01
PROVIDERS: PCP Family Medicine; Visit Provider Internal Medicine Rheumatology
DX: M25.50 Pain in unspecified joint (principal)
CPT/HCPCS: 36415; 80053; 85027; 85652; 86140

== ENCOUNTER 2024-02-21 15:50 | Outpatient (CLI) | payer OTHER, SELFPAY ==
--- NOTE | ~2024-02-21 | XR_ITS ---
XR foot LT min 3V Ordering provider: Joseph Garcia MD History: . Injury- stubbed Lt. 5th digit/Lt. foot pain x3 wks . Comparison: None. FINDINGS: BONES: No acute fracture or dislocation. Osteopenia of the bones. JOINT SPACES: Narrowing of the proximal and distal interphalangeal joints. No tarsal coalition. SOFT TISSUES: Normal. IMPRESSION: No acute osseous abnormality left foot. Reviewed, dictated and finalized at location A.
[2024-02-21 16:20] LABS: Add Urine Microscopic? YES; Appearance Urine Clear (Clear); Bilirubin Urine Negative (Negative); Blood Urine Negative (Negative); Color Urine Light Yellow (Yellow); Glucose Urine UA Negative (Negative); Ketones Urine Negative (Negative); Leukocyte Esterase Ur Trace (Negative); Nitrate Urine Negative (Negative); Protein Urine Negative (Negative); Urobilinogen Urine 0.2 mg/dL (0.2-1.0); pH Urine 6.5 (5.0-8.0)
[2024-02-21 16:21] LABS: Basophils Absolute Auto 0.01 K/mm3 (0.00-0.10); Basophils Percent Auto 0.1 % (0.0-1.0); Hematocrit 33.8 % (35.0-49.0); Hemoglobin 10.7 g/dL (12.0-15.0); Immature Granulocyte Absolute 0.03 K/mm3 (0.00-0.00); Immature Granulocyte Percent A 0.4 % (0.0-0.0); Lymphocytes Absolute Auto 0.68 K/mm3 (1.10-4.50); Lymphocytes Percent Auto 9.3 % (18.0-42.0); Mean Corpuscular HGB Conc 31.7 g/dL (32-36); Mean Corpuscular Hemoglobin 28.1 pg (27.0-31.0); Mean Corpuscular Volume 88.7 fL (78.0-102.0); Mean Platelet Volume 9.5 fl (9.2-11.8); Monocytes Absolute Auto 0.35 K/mm3 (0.10-0.90); Monocytes Percent Auto 4.8 % (2.0-11.0); Neutrophils Absolute Auto 6.28 K/mm3 (1.70-7.20); Neutrophils Percent Auto 85.4 % (50.0-70.0); Platelet Count Result 273 K/mm3 (150-420); Red Blood Count 3.81 M/mm3 (4.20-5.40); Red Cell Distribution Width 14.3 % (11.6-14.4); White Blood Count 7.4 K/mm3 (4.8-10.8)
[2024-02-21 16:33] LABS: RBC Urine None seen /hpf (0-2); Squamous Epithelial Cell Urine Moderate /hpf (Few); WBC Urine 0-3 /hpf (0-3)
[2024-02-21 16:34] LABS: Bacteria Urine 1+ /hpf
[2024-02-21 16:38] LABS: INR 0.9; Partial Thromboplastin Time 23.3 Sec (23.9-30.70); Prothrombin Time 10.3 Seconds (9.50-12.1)
[2024-02-24 12:25] LABS: Ferritin 76 ng/mL (8-252); Iron 20 ug/dL (50-170); Percent Iron Saturation 9 % (12-57)
[2024-02-24 19:55] LABS: Alanine Aminotransferase 40 U/L (14-59); Albumin Level 3.7 g/dL (3.4-5.0); Alkaline Phosphatase 52 U/L (46-116); Aspartate Amino Transferase 20 U/L (15-37); Bilirubin,Total 0.2 mg/dL (0.00-1.00); Blood Urea Nitrogen 20 mg/dL (7-18); Calcium 8.9 mg/dL (8.5-10.1); Chloride 102 mmol/L (98-108); Estimated Glomerular Filt Rate > 60; Glucose 98 mg/dL (70-99); Osmolality Calculated 290 mOsm/kg (285-295); Potassium 4.1 mmol/L (3.5-5.1); Sodium 139 mmol/L (136-145); Total Protein 6.7 g/dL (6.4-8.2)
[2024-02-24 20:01] LABS: Anion Gap 9 mmol/L (4-12); Carbon Dioxide 28 mmol/L (21-32)
== END 2024-02-21 15:51 | disposition home or self-care (01) ==
LOC: CHSLAB 15:53
PROVIDERS: PCP Family Medicine; Visit Provider Family Medicine
DX: Z01.818 Encounter for other preprocedural examination (principal); M79.675 Pain in left toe(s)
CPT/HCPCS: 36415; 73630; 80053; 81001; 82728; 83540; 83550; 85025; 85610; 85730

== ENCOUNTER 2024-02-25 13:26 | Outpatient (CLI) | payer OTHER, SELFPAY ==
--- NOTE | ~2024-02-25 | PE_ITS ---
EXAMINATION: PET skull to mid thigh DATE: 02/25/2024 15:35 INDICATION: Multiple myeloma. TECHNIQUE: Blood glucose level was 82 mg/dL. 10.578 mCi of 18-fluorodeoxyglucose (18-FDG) was adminis tered i.v. Low dose computed tomography (CT) images were acquired from the base of the brain to the p roximal thighs for attenuation correction and anatomic localization. Automated exposure control was e mployed. Dose-length product (DLP) was 564 mGy-cm. Positron emission tomography (PET) images were acq uired in the same distribution. COMPARISON: Chest CT 11/03/2021 FINDINGS: Head/neck: There is mucosal thickening in the paranasal sinuses. There is increased activity in jam l-sized bilateral internal jugular, left spinal accessory, and bilateral submandibular lymph nodes. Chest: There is mild emphysema. No pleural effusion. The heart size is normal. No pericardial effusio n. Calcified mediastinal lymph nodes are consistent with old granulomatous disease. There is increase d activity in normal-sized right axillary and left hilar lymph nodes. Abdomen/pelvis/proximal thighs: The liver and gallbladder are normal. Calcifications in the spleen ar e consistent with old granulomatous disease. The pancreas, adrenal glands, and kidneys are normal. Th ere are no dilated loops of bowel. The appendix is normal. There are no pathologically enlarged lymph nodes. There is increased activity in left inguinal, bilateral external iliac, right common iliac ly mph nodes, and periportal lymph nodes. There is no free intraperitoneal fluid. There are no abnormal lytic lesions of bone. IMPRESSION: 1. No abnormal lytic lesions of bone to suggest multiple myeloma. 2. Increased activity in normal-sized lymph nodes in the neck, chest, abdomen, and pelvis, which may be reactive. Reviewed, dictated and finalized at location A.
[2024-02-25 13:59] LABS: Glucose Point of Care 82 mg/dl (65-105)
== END 2024-02-25 13:27 | disposition home or self-care (01) ==
PROVIDERS: PCP Family Medicine; Visit Provider Internal Medicine Hematology & Oncology
DX: C90.00 Multiple myeloma not having achieved remission (principal)
CPT/HCPCS: 78815; A9552

== ENCOUNTER 2024-03-02 01:48 | Day surgery (SDC) | payer OTHER, SELFPAY ==
[2024-02-28 16:48] VITALS: BMI 19.8
--- NOTE | ~2024-03-02 | BM_ITS ---
EXAMINATION: CCL bone marrow asp w bx diag ORDER COMPLETED DATE: 03/02/2024 10:36 INDICATION: Multiple myeloma TECHNIQUE: A time-out was performed to verify the patient's name, date of , and procedure to b e performed. The procedure including the risks and benefits was discussed with the patient. Risks dis cussed included bleeding, infection, nerve injury and allergic reaction. The patient understood the r isks and agreed to proceed. The skin overlying the right posterior iliac spine was prepped and draped in usual sterile fashion. Anesthetic was administered with 1% lidocaine subcutaneously. Moderate co nscious sedation was achieved with 50 mcg fentanyl IV. An 11 gauge needle was inserted into the right ilium with fluoroscopic guidance. Bone marrow was aspirated. An 8 gauge needle was then inserted int o the right ilium with fluoroscopic guidance. A core bone marrow biopsy was obtained. The needle was removed and the entry site was cleaned and dressed. There were no immediate complications. A total o f 0 fluoroscopic images were recorded. Fluoroscopy exposure time was 0.1 minutes. FINDINGS: Real-time fluoroscopy demonstrates the tip of a hemostat for marking overlying the right po sterior iliac spine. IMPRESSION: 1. Successful fluoroscopic guided bone marrow aspiration. 2. Successful fluoroscopic guided bone marrow biopsy. Reviewed, dictated and finalized at location A.
[2024-03-02 08:22] VITALS: BP 99/75; PULSE 87; RESP 16; TEMP 36.9; O2SAT 99; BMI 19.8
[2024-03-02 08:39] LABS: Basophils Percent Auto 0.4 % (0.2-1.2); Eosinophils Percent Auto 1.1 % (0-4.4); Hematocrit 36.1 % (37.0-47.0); Hemoglobin 11.5 g/dL (12.0-15.0); Immature Granulocyte Absolute 0.01 K/mm3 (0.00-0.031); Immature Granulocyte Percent A 0.4 % (0-0.5); Lymphocytes Absolute Auto 0.51 K/mm3 (0.9-3.2); Mean Corpuscular HGB Conc 31.9 g/dl (32-36); Mean Corpuscular Hemoglobin 28.8 pg (26-34); Mean Corpuscular Volume 90.5 fl (80-100); Mean Platelet Volume 9.5 fl (7.4-10.4); Monocytes Absolute Auto 0.4 K/mm3 (0.1-0.6); Neutrophils Absolute Auto 1.9 K/mm3 (1.3-6.7); Neutrophils Percent Auto 67.1 % (45.5-73.1); Platelet Count Result 218 k/mm3 (150-375); Red Blood Count 3.99 M/mm3 (4.2-5.4); Red Cell Distribution Width 13.8 % (11.5-14.5); White Blood Count 2.8 K/mm3 (4.5-10.0)
[2024-03-02 08:49] LABS: INR 0.9; Prothrombin Time 12.9 Seconds (11.1-14.7)
--- NOTE | 2024-03-02 09:55 | WPDMODSED ---
Moderate Sedation Note-Pt Data Patient Data Diagnosis: multiple myeloma Present Complaint: plasma cell disorder and neuropathy Procedure to be performed/Plan: bone marrow biopsy Allergies Allergy/AdvReac Type Severity Reaction Status Date / Time No Known Allergies Allergy Verified 03/02/24 08:20 Home Medications Medication Instructions Recorded Confirmed Type pregabalin 50 mg capsule 150 mg PO USEASDIRECTD 12/08/23 03/02/24 History estradiol 10 mcg vaginal tablet 10 mcg vaginal DAILY 03/02/24 03/02/24 History (Vagifem) Sedation/Anesthesia: No previous sedation/anesthesia problems (including family history). [facility] Past Medical History Medical History Colon cancer screening History of breast cancer Rheumatoid arthritis Surgical History Surgical History Hx of breast implants, bilateral S/P mastectomy, bilateral Family History Family History Mother Hypertension Grandparent Malignant neoplasm of prostate Family history of malignant neoplasm of uterus Family history of atrial fibrillation Diabetes mellitus Carcinoma of colon Sibling Family history of malignant neoplasm of breast in first degree relative Other Cerebrovascular accident Family history of allergic disorder Family history of cardiovascular disease Family history of osteoporosis Social History Social History Smoking status: Never smoker Alcohol intake: former Drinks per week: 4 Alcohol use details: 4 glasses of wine per week Substance use: never Substance use type: does not use Living arrangements: with family Gender identity (if verbalized by the patient): Female Spiritual care concerns: No Mod Sed Physical Exam Physical Exam Pre Procedural Exam: Normal: Appearance, Neck, Throat, Lungs, Heart Rate and Heart Rhythm Hours since solid foods: 12 Hours since liquid intake: 12 Mallampati Classification: class 1 Internal Medicine - PN: Obj Da Vital Signs Vital Signs: Vital Signs - 24 hr 03/02/24 08:22 Temperature 98.5 F Pulse Rate 87 Respiratory Rate 16 Blood Pressure 99/75 L Pulse Oximetry 99 Oxygen Delivery Room Air Labs 03/02/24 08:29 Labs: Laboratory Results - last 24 hr 03/02/24 08:29 WBC 2.8 L RBC 3.99 L Hgb 11.5 L Hct 36.1 L MCV 90.5 MCH 28.8 MCHC 31.9 L RDW 13.8 Plt Count 218 MPV 9.5 Immature Gran % (Auto) 0.4 Neut % (Auto) 67.1 Lymph % (Auto) 18.0 L Ripley % (Auto) 13.0 H Eos % (Auto) 1.1 Baso % (Auto) 0.4 Lymph # (Auto) 0.51 L [place]y # (Auto) 0.4 Eos # (Auto) 0.0 Baso # (Auto) 0.0 Abs Immat Gran (auto) 0.01 Absolute Neuts (auto) 1.9 Absolute Nucleated RBC 0.000 Nucleated RBC % 0.0 PT 12.9 INR 0.9 ASA Classification/Sedation ASA Classification/Sedation ASA Class: III Emergent: No Risks: Risks, benefits and alternatives explained and patient/family accepted plan for sedation. Patient re-evaluated immediately prior to sedation.
[2024-03-02 10:30] VITALS: BP 109/85; PULSE 78; RESP 15; O2SAT 100
[2024-03-02 10:45] VITALS: BP 97/71; PULSE 78; RESP 14; O2SAT 100
[2024-03-02 11:00] VITALS: BP 103/70; PULSE 78; RESP 12; O2SAT 100
[2024-03-02 11:15] VITALS: BP 98/71; PULSE 78; RESP 14; O2SAT 98
[2024-03-02 11:30] VITALS: BP 103/68; PULSE 71; RESP 15; O2SAT 97
== END 2024-03-02 11:35 | disposition home or self-care (01) ==
PROVIDERS: PCP Family Medicine; Referring Provider Internal Medicine Hematology & Oncology; Visit Provider Radiology Diagnostic Radiology
DX: C90.00 Multiple myeloma not having achieved remission (principal); M06.9 Rheumatoid arthritis, unspecified; Z98.890 Other specified postprocedural states; Z85.3 Personal history of malignant neoplasm of breast; Z80.42 Family history of malignant neoplasm of prostate; Z80.49 Family history of malignant neoplasm of other genital organs; Z80.0 Family history of malignant neoplasm of digestive organs; Z80.3 Family history of malignant neoplasm of breast; Z82.49 Family history of ischemic heart disease and other diseases of the circulatory system
CPT/HCPCS: 36415; 38222; 85025; 85610; 88305; 88311; 88313; 88341; 88342; J1642; J3010; J7040

== ENCOUNTER 2024-03-17 15:53 | Outpatient (CLI) | payer OTHER, SELFPAY ==
[2024-03-17 16:25] LABS: Basophils Absolute Auto 0.01 K/mm3 (0.00-0.10); Basophils Percent Auto 0.2 % (0.0-1.0); Eosinophils Absolute Auto 0.04 K/mm3 (0.02-0.50); Hematocrit 36.7 % (35.0-49.0); Hemoglobin 12.1 g/dL (12.0-15.0); Immature Granulocyte Absolute 0.04 K/mm3 (0.00-0.00); Lymphocytes Absolute Auto 0.82 K/mm3 (1.10-4.50); Lymphocytes Percent Auto 20.2 % (18.0-42.0); Mean Corpuscular Hemoglobin 28.3 pg (27.0-31.0); Mean Corpuscular Volume 85.9 fL (78.0-102.0); Mean Platelet Volume 9.1 fl (9.2-11.8); Monocytes Absolute Auto 0.21 K/mm3 (0.10-0.90); Monocytes Percent Auto 5.2 % (2.0-11.0); Neutrophils Absolute Auto 2.93 K/mm3 (1.70-7.20); Neutrophils Percent Auto 72.4 % (50.0-70.0); Platelet Count Result 292 K/mm3 (150-420); Red Blood Count 4.27 M/mm3 (4.20-5.40); Red Cell Distribution Width 13.5 % (11.6-14.4); White Blood Count 4.1 K/mm3 (4.8-10.8)
[2024-03-17 17:10] LABS: Alanine Aminotransferase 21 U/L (14-59); Albumin Level 3.1 g/dL (3.4-5.0); Alkaline Phosphatase 52 U/L (46-116); Anion Gap 6 mmol/L (4-12); Aspartate Amino Transferase 25 U/L (15-37); Bilirubin,Total 0.3 mg/dL (0.00-1.00); Blood Urea Nitrogen 11 mg/dL (7-18); CRP 2.5 mg/dL (0.0-0.9); Calcium 8.8 mg/dL (8.5-10.1); Carbon Dioxide 31 mmol/L (21-32); Chloride 100 mmol/L (98-108); Estimated Glomerular Filt Rate > 60; Ferritin 103 ng/mL (8-252); Glucose 87 mg/dL (70-99); Iron 28 ug/dL (50-170); Osmolality Calculated 282 mOsm/kg (285-295); Percent Iron Saturation 13 % (12-57); Potassium 3.9 mmol/L (3.5-5.1); Sodium 137 mmol/L (136-145); Total Protein 5.8 g/dL (6.4-8.2); Vitamin B12 610 pg/mL (193-986)
[2024-03-17 17:39] LABS: Erythrocyte Sedimentation Rate 28 mm/hr (0-20)
[2024-03-19 12:08] LABS: Immunoglobulin A 178 mg/dL (47-310); Immunoglobulin G 627 mg/dL (600-1640); Immunoglobulin M 299 mg/dL (50-300)
[2024-03-19 16:08] LABS: Lambda Light Chain 15.4 mg/L (5.7-26.3)
== END 2024-03-17 15:54 | disposition home or self-care (01) ==
PROVIDERS: PCP Family Medicine; Visit Provider Psychiatry & Neurology Neurology
DX: G60.9 Hereditary and idiopathic neuropathy, unspecified (principal); D72.9 Disorder of white blood cells, unspecified
CPT/HCPCS: 36415; 80053; 82607; 82728; 82746; 82784; 83540; 83550; 83883; 85025; 85652; 86140

== ENCOUNTER 2024-07-09 16:13 | Outpatient (CLI) | payer OTHER, SELFPAY ==
--- NOTE | ~2024-07-09 | XR_ITS ---
EXAMINATION: XR chest 2V Exam Date/Time: 07/09/2024 16:25 RADIO PROGRAM CHECKER HISTORY: acute cough Comparison: 11/03/2021; CTPA 11/03/2021. RESULT: Lines, tubes, and devices: None. Lungs and pleura: Clear. Cardiomediastinal silhouette: Stable. Other: No acute osseous or upper abdominal finding. IMPRESSION: No acute cardiopulmonary process. Reviewed, dictated and finalized at location K. O PROGRAM CHECKER
[2024-07-09 17:04] LABS: SARS-CoV-2 RNA PCR Negative (Negative)
[2024-07-09 17:05] LABS: Influenza A QL RT-PCR Negative (Negative); Influenza B QL RT-PCR Negative (Negative); RSV RNA, RT-PCR Negative (Negative)
== END 2024-07-09 16:14 | disposition home or self-care (01) ==
LOC: CHSLAB 16:15
PROVIDERS: PCP Family Medicine; Visit Provider Family Medicine
DX: J06.9 Acute upper respiratory infection, unspecified (principal)
CPT/HCPCS: 71046; 87637